=== PATIENT | male | born 1935 | race Caucasian/White ===

== ENCOUNTER 2021-03-22 01:30 | Emergency (ER) | payer MEDICARE ==
[~2021-03-22] VITALS: Ht 180.3 cm; Wt 84.4 kg
[2021-03-22 01:33] VITALS: BP 115/77
--- NOTE | 2021-03-22 01:49 | NUR ---
AMBULATED TO ER BED 3
[2021-03-22] MEDS ORDERED: NITROGLYCERIN 0.4 MG TAB SL ONE (02:00)
[2021-03-22] MEDS ORDERED: ASPIRIN 325 MG TAB PO ONE (02:00)
--- NOTE | 2021-03-22 02:00 | NUR ---
PT. IS AN 85 Y/O MALE THAT CAME INTO ED WITH C/O CHEST PAIN. PT REPORTS HE TOOK HIS CPAP OFF TO USE THE RESTROOM AND WHEN HE CAME BACK TO PUT IT BACK ON HIS JAW STARTING HURTING WITH STERNAL PAIN. PAIN IA 4/10, DOES NOT RADIATE TO LEFT ARM. DENIES N/V/D; SKIN IS PINK/WARM/DRY; AAOX4 WITH EVEN AND STEADY GAIT; LUNGS CLEAR BL; HR EVEN AND REGULAR; PT DENIES ANY FEVER, CP, SOB, OR COUGH AT THIS TIME; VSS; PATIENT POSITIONED FOR COMFORT WITH AT BEDSIDE; HOB ELEVATED; BEDRAILS UP X2; BED DOWN. ERMD MADE AWARE OF PT STATUS. MED HX: HTN, ARTHRITIS, SLEEP APNEA ALLERGIES: SULFA
[2021-03-22 02:14] LABS: BASOPHILS % (AUTO) 0.4 % (0.0-2.0); EOSINOPHILS # (AUTO) 0.2 K/uL (0-0.4); EOSINOPHILS % (AUTO) 3.5 % (0.0-4.0); HEMATOCRIT 39.9 % (36-52); HEMOGLOBIN 13.5 g/dL (12.0-18.0); LYMPHOCYTES # (AUTO) 1.5 K/uL (2.0-11.5); LYMPHOCYTES % (AUTO) 22.3 % (20.5-51.1); MEAN CORPUSCULAR HEMOGLOBIN 32 pg (27-31); MEAN CORPUSCULAR HGB CONC 34 g/dL (33-37); MEAN CORPUSCULAR VOLUME 94.1 fL (80-94); MONOCYTES # (AUTO) 0.9 K/uL (0.8-1.0); MONOCYTES % (AUTO) 14.2 % (1.7-9.3); NEUTROPHILS # (AUTO) 3.9 K/uL (1.8-7.7); NEUTROPHILS % (AUTO) 59.6 % (42.2-75.2); PLATELET COUNT (AUTO) 173 K/uL (140-450); RED BLOOD CELL COUNT(AUTO) 4.24 MIL/uL (4.20-6.10); RED CELL DISTRIBUTION WIDTH 13.3 % (11.6-13.7); WHITE BLOOD COUNT (AUTO) 6.6 K/uL (4.8-10.8)
[2021-03-22 02:30] LABS: ALBUMIN 3.6 g/dL (3.4-5.0); ANION GAP 12.7 (8-16); ASPARTATE AMINOTRANSFERASE 17 U/L (15-37); CHLORIDE 99 mmol/L (98-107); CREATININE 0.8 mg/dL (0.6-1.3); GLUCOSE 116 mg/dL (74-106); POTASSIUM 3.7 mmol/L (3.5-5.1); SODIUM SERUM 134 mmol/L (136-145); TOTAL BILIRUBIN 0.4 mg/dL (0.0-1.0); UREA NITROGEN, BLOOD 12 mg/dL (7-18)
--- NOTE | 2021-03-22 03:30 | NUR ---
PT. SITTING UPRIGHT IN BED WITH EYES CLOSED, VOICES NO COMPLAINTS AT THIS TIME. AT BEDSIDE
--- NOTE | 2021-03-22 05:13 | NUR ---
LAB AT BEDSIDE
--- NOTE | 2021-03-22 05:22 | NUR ---
VERBAL ORDER FOR EKG FROM MD WYLIE. ORDER PLACED.
[2021-03-22 06:06] VITALS: BP 115/77
--- NOTE | 2021-03-22 06:06 | NUR ---
Patient does not wish to proceed with medical care recommended by DR. WYLIE. Patient given information related to possible complications, up to and including , which could occur as a result of leaving hospital at this time. Patient verbalizes understanding of risks involved leaving against medical advice. Patient has signed AMA form.
== END 2021-03-22 06:06 | disposition left against medical advice (07) ==
LOC: MED 01:30
DX: R07.9 Chest pain, unspecified (principal); Z88.2 Allergy status to sulfonamides
CPT/HCPCS: 36415; 71045; 80053; 84484; 85025; 93005; 99285